=== PATIENT | female | born 1965 | race Caucasian/White ===

== ENCOUNTER → 2016-07-12 | Outpatient (CLI) | payer MEDICARE ==
[2016-07-12 10:44] LABS: Blood Urea Nitrogen 8 mg/dL (7-17); Non-African American GFR(MDRD) >60 (>60 ml/min/1.73 sqM)
--- NOTE | 2016-07-12 12:23 | CT ---
EXAMINATION TYPE: CT ChestAbdPelvis w con DATE OF EXAM: 07/12/2016 11:32 AM COMPARISON: 05/19/2016, 03/30/2016, 01/26/2016, 07/15/2015. HISTORY: 50-year-old female Patient has no complaints at time of service. Follow up study for known colon CA. TECHNIQUE: Contiguous axial scanning of the chest, abdomen, and pelvis performed with IV Contrast, pa tient injected with 100 mL of Omnipaque 300. Delayed images through the kidneys were obtained. Schwartz l/sagittal reconstructions performed. CT DLP: 1985 mGycm Automated exposure control for dose reduction was used. FINDINGS: CHEST: Left anterior chest wall injection port with catheter tip at the cavoatrial junction. Heart is normal size without pleural effusion. Aorta is normal caliber with conventional arch vessel branching anatomy. No thoracic lymphadenopathy. Mild biapical emphysema and some strandy atelectasis at the left base. There is a 9 mm medial basilar left lower lobe pulmonary nodule unchanged from 05/19/2016. A 6 mm pul monary nodule appears increased from 01/26/2016 but relatively stable on 03/30/2016. 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 ABDOMEN: No focal liver lesion or biliary ductal dilatation. Portal venous system is patent. There is new mild perihepatic ascites fluid and some mild ascites fluid in the left upper quadrant as well. Cholecystectomy clips are present. Adrenal glands, spleen, and pancreas appear within normal limits. Left greater than right pelvicaliectasis redemonstrated without any contrast entering the ureters on the delayed kidney images. No dilated small bowel, free fluid, or free air. Oral contrast has progressed to the hepatic flexure. Mild sigmoid diverticulosis. Pelvis: There has been previous sigmoid resection and rectosigmoid reanastomosis. The mid to distal sigmoid c olon remains flattened against the right pelvic sidewall secondary to the large pelvic mass which aleta ws interval progressive increase in size. The mass is complex cystic with septations and soft tissue components and measures up to 20.0 cm wide, 22.6 cm AP, and 17.0 cm craniocaudal on the sagittal seri es. This is in comparison to 15.1 x 18.5 cm on 03/30/2016. There is greater degree of mass effect ont o the anterior abdominal wall bulging anteriorly. Uterus appears flattened between the mass and the bladder. There is some presacral edema. Bones: Levoconvex scoliosis lumbar spine. No osseous destructive process seen. IMPRESSION: 1. INTERVAL ENLARGEMENT OF PATIENT'S VERY LARGE COMPLEX CYSTIC PELVIC MASS NOW MEASURING 20 X 23 CM V ERSUS 15 X 19 CM ON 03/30/2016. 2. THIS CONTINUES TO FLATTEN THE MID TO DISTAL SIGMOID COLON AGAINST THE RIGHT PELVIC SIDEWALL AND TH ERE IS INCREASING MASS EFFECT ONTO THE ANTERIOR ABDOMINAL WALL MUSCULATURE. MILD BILATERAL PELVICALIE CTASIS IS UNCHANGED, LIKELY DUE TO MASS EFFECT ONTO THE DISTAL URETERS. 3. A 9 MM MEDIAL LEFT BASILAR PULMONARY NODULE IS UNCHANGED FROM 07/15/2015. A 6 MM MEDIAL RIGHT BASIL AR PULMONARY NODULE APPEARS INCREASED IN SIZE FROM 03/30/2016.
== END | disposition home or self-care (01) ==
LOC: RADPROMAIN 10:08
PROVIDERS: ATTEND Internal Medicine Hematology & Oncology
DX: C18.9 Malignant neoplasm of colon, unspecified (principal); N94.89 Other specified conditions associated with female genital organs and menstrual cycle; R91.8 Other nonspecific abnormal finding of lung field
CPT/HCPCS: 82565; 84520; 71260; 74177; 36415; Q9967

== ENCOUNTER 2016-08-19 08:41 | Day surgery (SDC) | payer MEDICARE ==
[2016-08-19 09:06] VITALS: TEMP 97.7
[2016-08-19] MEDS ORDERED: HYDROmorphone 1 MG/ML 1 ML SYRINGE IVP STA (09:19)
[2016-08-19 09:37] LABS: Mean Platelet Volume 7.8
[2016-08-19 09:51] LABS: INR 1.2 (<1.1); Prothrombin Time 11.6 sec (9.0-12.0)
--- NOTE | 2016-08-19 11:51 | US ---
Therapeutic paracentesis. CLINICAL HISTORY: ascites The procedure was discussed with the patient. The risks, complications, benefits, and alternatives we re discussed and any questions were answered. Informed consent was obtained. The patient was placed s upine on the ultrasound table and prepped and draped in the usual sterile fashion. All elements of maximal barrier technique were utilized. Under ultrasound guidance, access into the right lower quadrant was obtained, via the paracentesis catheter system and direct ultrasound guidanc e. Approximately 2.5 liters of straw-colored fluid was removed. The patient was stable throughout the pr ocedure and remained stable upon discharge from Department of Radiology. IMPRESSION: Successful therapeutic paracentesis under ultrasound guidance.
[2016-08-19 11:58] VITALS: BP 121/70; PULSE 101; RESP 18
== END 2016-08-19 11:45 | disposition home or self-care (01) ==
LOC: RADPROMAIN 08:41
PROVIDERS: ATTEND Internal Medicine Hematology & Oncology
DX: R18.8 Other ascites (principal); C19 Malignant neoplasm of rectosigmoid junction
CPT/HCPCS: 85049; 85610; 96374; 49083; J1170

== ENCOUNTER → 2016-10-25 | Outpatient (CLI) | payer MEDICARE ==
[2016-10-25 08:31] LABS: Blood Urea Nitrogen 8 mg/dL (7-17); Non-African American GFR(MDRD) >60 (>60 ml/min/1.73 sqM)
--- NOTE | 2016-10-25 09:48 | CT ---
EXAMINATION TYPE: CT ChestAbdPelvis w con DATE OF EXAM: 10/25/2016 9:05 AM COMPARISON: 07/12/2016 HISTORY: 50-year-old female follow-up to colorectal cancer. TECHNIQUE: Contiguous axial scanning of the chest, abdomen, and pelvis performed with IV Contrast, pa tient injected with 100 mL of Omnipaque 300. Delayed images through the kidneys were obtained. Schwartz l/sagittal reconstructions performed. CT DLP: 1628.5 mGycm Automated exposure control for dose reduction was used. FINDINGS: CHEST: Left anterior chest wall injection port with catheter tip at the cavoatrial junction. The heart is normal size without pericardial effusion. The aorta is normal caliber with conventional arch vessel branching anatomy. No thoracic lymphadenopa thy by CT size criteria. There is new small left pleural effusion with patchy subsegmental left lower lobe atelectasis. Mild b iapical pleural-parenchymal scarring and minimal emphysematous change. A 9 mm medial right basilar pulmonary nodule as increased in size from 6 mm, previously. The previous ly seen 9 mm left basilar pulmonary nodule is obscured by the pleuroparenchymal disease mentioned abo ve. ABDOMEN: Increasing, now moderate abdominopelvic ascites. Nonspecific prominent, borderline sized retroperiton eal lymph nodes are noted measuring up to 9 mm aortocaval region and 8 mm left periaortic region, inc reased in size from prior. Stable to minimally larger complex solid cystic mass within the pelvis extending up to the mid abdomi nal level measuring 22.2 cm wide by 23.5 cm AP by 17.2 cm craniocaudal versus 20.0 x 22.6 x 17.0 cm, previously. Solid enhancing components have increased in size especially anteriorly and left laterall y. In addition, there is new nodularity along the upper left omentum, axial image 53 extending up to axi al image 41. No dilated small bowel or free air. Nonspecific vague 2.7 cm hypodense area along the anterior falciform ligament not clearly seen previo usly. Otherwise, no focal liver lesion. Portal venous system is patent. Cholecystectomy clips are pre sent. No biliary ductal dilatation. Adrenal glands, spleen, atrophic pancreas show no gross abnormality. There is continued mild bilateral pelvicaliectasis likely with compression of the distal ureters. PELVIS: The mass continues to pancake the mid to distal sigmoid posteriorly and along the right lateral pelvi c wall. It also continues to inferiorly displace the uterus and bladder. There is redemonstrated stap le line at the colorectal junction. Interval development of mild diffuse anasarca-type change and wi th continued presacral edema. BONES: No osseous destructive process seen. IMPRESSION: 1. STABLE TO SLIGHT INTERVAL ENLARGEMENT OF THE PATIENT'S COMPLEX SOLID AND CYSTIC PELVIC MASS THAT C ONTINUES TO EXTEND UP TO THE MID ABDOMINAL LEVEL (22.2 X 23.5 CM VERSUS 20.0 X 22.6 CM, PREVIOUSLY). THIS CONTINUES TO FLATTEN THE DISTAL URETERS, BLADDER/UTERUS, AND MID TO DISTAL SIGMOID. 2. INCREASING, NOW MODERATE ABDOMINOPELVIC ASCITES. 3. SUGGESTION OF NEW SOFT TISSUE NODULARITY ALONG THE LEFT UPPER OMENTUM. THIS COULD REPRESENT CONFLU ENT EDEMA OR METASTATIC OMENTAL DEPOSITS. 4. A VAGUE 2.7 CM HYPODENSITY ANTERIOR LIVER NEAR THE FALCIFORM LIGAMENT NOT CLEARLY SEEN PREVIOUSLY. A SUBTLE EARLY HEPATIC METASTATIC FOCUS IS NOT EXCLUDED. PERFUSION VARIATION IS AN ALTERNATIVE CONSI DERATION. ATTENTION ON FOLLOW-UP. 5. MEDIAL RIGHT BASILAR PULMONARY NODULE IS SLIGHTLY INCREASED IN SIZE NOW MEASURING 9 MM VERSUS 6 MM , PREVIOUSLY. THE PREVIOUSLY SEEN MEDIAL LEFT BASILAR PULMONARY NODULE IS OBSCURED BY THE NEW SMALL L EFT PLEURAL EFFUSION AND ADJACENT PATCHY ATELECTASIS.
== END | disposition home or self-care (01) ==
LOC: RADPROMAIN 07:45
PROVIDERS: ATTEND Internal Medicine Hematology & Oncology
DX: J98.11 Atelectasis (principal); J90 Pleural effusion, not elsewhere classified; R91.1 Solitary pulmonary nodule; R93.2 Abnormal findings on diagnostic imaging of liver and biliary tract; R18.8 Other ascites; C20 Malignant neoplasm of rectum
CPT/HCPCS: 82565; 84520; 36415; 71260; 74177; Q9967; J1642